=== PATIENT | female | born 1970 | race Caucasian/White ===

== ENCOUNTER 2024-04-23 06:12 | Day surgery (SDC) | payer OTHER ==
[~2024-04-23] VITALS: Ht 134.6 cm; Wt 63.6 kg
[~2024-04-23 06:12] MED LIST: DEXAMETHASONE SOD PHOS 4 MG/ML VIAL ONE; LIDOCAINE/PF 2% 5 ML VIAL ONE; METOPROLOL TARTRATE 5 MG/5 ML VIAL ONE; ONDANSETRON HCL 4 MG/2 ML VIAL ONE; PROPOFOL 1% 20 ML VIAL IVP ONE; ROCURONIUM BROMIDE 10 MG/ML 5 ML VIAL ONE; SUGAMMADEX SODIUM 200 MG/2 ML VIAL IVP ONE
[2024-04-23] MEDS ORDERED: RINGERS SOLUTION,LACTATED 1,000 ML IV ONE (06:35)
[2024-04-23] MEDS ORDERED: AMPICILLIN SODIUM 2 GM/NS 100 ML IV ONE (07:35)
[2024-04-23 08:19] LABS: BASOPHILS % (AUTO) 0.4 % (0.0-2.0); EOSINOPHILS % (AUTO) 3.6 % (1.0-6.0); HEMOGLOBIN 10.9 g/dL (12.0-16.0); LYMPHOCYTES % (AUTO) 18.8 % (22.0-44.0); MEAN CORPUSCULAR HEMOGLOBIN 21.8 pg (26.0-34.0); MEAN CORPUSCULAR HGB CONC 31.1 G/dL (31.0-37.0); MEAN CORPUSCULAR VOLUME 70 fL (80-100); MONOCYTES # (AUTO) 0.5 K/uL (0.1-1.0); MONOCYTES % (AUTO) 4.4 % (2.0-9.0); NEUTROPHILS # (AUTO) 7.9 K/uL (1.8-7.7); NEUTROPHILS % (AUTO) 72.8 % (40.0-70.0); PLATELET COUNT (AUTO) 233 K/uL (150-450); RED BLOOD CELL COUNT(AUTO) 5.01 MIL/uL (4.00-5.20); RED CELL DISTRIBUTION WIDTH 20.4 % (11.5-14.5); WHITE BLOOD COUNT (AUTO) 10.8 K/uL (4.5-11.0)
[2024-04-23 08:24] LABS: ANION GAP 10 mmol/L (8-16); CALCIUM, TOTAL 9.2 mg/dL (8.8-10.5); CARBON DIOXIDE 26 mmol/L (22-29); CHLORIDE 112 mmol/L (98-107); CREATININE 0.87 mg/dL (0.60-1.30); GLOMERULAR FILTR. RATE CALC > 60 mL/min (>60); GLUCOSE,RANDOM 131 mg/dL (70-110); POTASSIUM 3.7 mmol/L (3.5-5.1); SODIUM SERUM 148 mmol/L (136-145); UREA NITROGEN, BLOOD 33 mg/dL (7-18)
[2024-04-23 08:31] LABS: PROTHROMBIN TIME 10.2 SEC (9.4-11.6)
[2024-04-23 08:37] LABS: ALANINE AMINOTRANSFERASE 14 U/L (12-78); ALKALINE PHOSPHATASE 106 U/L (46-116); ASPARTATE AMINOTRANSFERASE 8 U/L (15-37); BILIRUBIN,TOTAL 0.2 mg/dL (0.1-1.0)
[2024-04-23 09:06] LABS: RBC MORPHOLOGY COMMENT ABNORMAL RBC MORPH
[2024-04-23] MEDS: RINGERS SOLUTION,LACTATED 1,000 ML IV ONE (09:33)
[2024-04-23] MEDS ORDERED: MAGN-169 PO (09:35)
[2024-04-23] MEDS ORDERED: LORA1TAB25 PO (09:35)
[2024-04-23] MEDS ORDERED: CARB-223 AU (09:35)
[2024-04-23] MEDS ORDERED: IBUP-1492 PO (09:35)
[2024-04-23] MEDS ORDERED: FERR325T27 PO (09:35)
[2024-04-23] MEDS ORDERED: LACO100T14 PO (09:35)
[2024-04-23] MEDS ORDERED: CHOL200059 PO (09:35)
[2024-04-23] MEDS ORDERED: ASPI-1450 PO (09:35)
[2024-04-23] MEDS ORDERED: DULO-114 PO (09:35)
[2024-04-23] MEDS ORDERED: BISA10SU11 PR (09:35)
[2024-04-23] MEDS ORDERED: LEVO25TA9 PO (09:36)
[2024-04-23] MEDS ORDERED: SIMV-261 PO (09:36)
== END 2024-04-23 13:10 | disposition home or self-care (01) ==
LOC: SURGERY 06:12
PROVIDERS: ATTEND Dentist General Practice
DX: K02.9 Dental caries, unspecified (principal); K05.6 Periodontal disease, unspecified; I70.0 Atherosclerosis of aorta; D64.9 Anemia, unspecified; I25.2 Old myocardial infarction
CPT/HCPCS: 80053; 85025; 85610; 85730; 36415; 93005; 71045; 41899; J0290; J2704; J1100; J3490 ×4; J2405; J7120